=== PATIENT | female | born 1955 | race Caucasian/White ===

== ENCOUNTER 2020-11-04 09:51 | Outpatient (CLI) | payer MEDICARE, SELFPAY ==
--- NOTE | ~2020-11-04 | MM_ITS ---
EXAMINATION: MM screening [facility] BI w khadra HISTORY: Screening TECHNIQUE: Craniocaudal and mediolateral oblique 3-D tomosynthesis images were obtained and synthetic 2-D images were generated. CAD analysis was submitted and interpreted. COMPARISON: Comparison to multiple prior studies sequentially, with oldest reviewed study dated 04/08. BREAST PARENCHYMAL COMPOSITION: There are scattered areas of fibroglandular density. FINDINGS: There is no evidence of suspicious mass, calcification, or architectural distortion to sugg est malignancy in either breast. There has been no suspicious interval change. IMPRESSION: 1. No mammographic evidence of malignancy. 2. Recommend routine screening mammography in one year. BI-RADS Category 1: Negative Reviewed, dictated and finalized at location A. OR INTEGRATION ARCHITECT
== END 2020-11-04 09:52 | disposition home or self-care (01) ==
LOC: ANHIMG 09:56
PROVIDERS: PCP Family Medicine; Visit Provider Obstetrics & Gynecology
DX: Z12.31 Encounter for screening mammogram for malignant neoplasm of breast (principal)
CPT/HCPCS: 77063; 77067

== ENCOUNTER 2021-05-29 10:26 | Emergency (ER) | payer MEDICARE, SELFPAY ==
--- NOTE | 2021-05-29 10:45 | ED.URI ---
HPI - URI/Sore Throat General Chief Complaint: Upper Respiratory Infection Stated Complaint: cough/head congestion Time Seen by Provider: 05/29/21 10:45 Source: patient and RN notes reviewed Mode of arrival: ambulatory Limitations: no limitations History of Present Illness HPI Narrative: 65-year-old female presents with complaints of a cough,, frontal headache, sinus congestion, states she is having trouble breathing out her nose. Has been using a Kathryn pot and Mucinex DM. States that she has had her Covid vaccine in January. Has been going on for approximately 1 week. Denies any fevers. MD elicited complaint: cough Related Data Home Medications Medication Instructions Recorded Confirmed biotin 5,000 mcg PO DAILY 10/08/19 05/29/21 ocenvmunm-xdpmrmcp-zeh-hyalur 1 tablet PO DAILY 10/08/19 05/29/21 [Joint Health] kbcmwlrt-qby-anqj-FA-lutein 1 tablet PO DAILY 10/08/19 05/29/21 [Centrum Silver Women] ascorbate calcium (vitamin C) 814 814 mg PO DAILY 04/01/20 05/29/21 mg/gram oral powder calcium carbonate-vitamin D3 600 1 cap PO DAILY cap 02/11/21 05/29/21 mg (1,500 mg)-400 unit capsule zinc acetate 50 mg (zinc) capsule 50 mg PO DAILY 02/11/21 05/29/21 Allergies Allergy/AdvReac Type Severity Reaction Status Date / Time No Known Allergies Allergy Verified 05/29/21 11:00 Review of Systems Review of Systems: All systems reviewed & are unremarkable except as noted in HPI and below Constitutional: Constitutional: Reports no additional constitutional complaints, Denies chills and Denies fever(s) Eyes: Eyes: Reports no additional eye complaints, Denies change in vision and Denies photophobia ENT: Reports as per HPI, Denies vertigo, Denies dizziness, Reports nasal congestion and Denies sore throat Cardiovascular: Cardiovascular: Reports no additional cardiovascular complaints and Denies chest pain Respiratory: Respiratory: Reports as per HPI, Reports cough, Denies dyspnea and Denies wheezing Gastrointestinal: Gastrointestinal: Reports no additional gastrointestinal complaints, Denies abdominal pain, Denies nausea and Denies vomiting Genitourinary: Genitourinary: Reports no additional female genitourinary complaints Musculoskeletal: Musculoskeletal: Reports no additional musculoskeletal complaints, Denies back pain, Denies arthralgias, Denies joint swelling and Denies muscle cramps Integumentary/Breasts: Skin/Breast: Reports system reviewed and no additional complaints, except as docu Neurologic: Reports as per HPI and Reports headache(s) (Frontal and maxillary areas of face) Psychiatric: Psychiatric: Reports no additional psychiatric complaints Hematologic/Lymphatic: Hematologic/Lymphatic: Reports no additional hematologic/lymphatic complaints Allergic/Immunologic: Allergic/Immunologic: Reports no additional allergic/immunologic complaints [facility] Past Medical History Medical History Arthritis Chronic low back pain without sciatica Colon polyp Diverticulosis Dyslipidemia GERD (gastroesophageal reflux disease) GERD without esophagitis Hyperlipidemia Polyp of small intestine Premature menopause Unspecified osteoarthritis, unspecified site Surgical History Surgical History Hx of section 1981, 1983 Hx of colonoscopy 2019 Family History Family History Other Diabetes mellitus Family history of coronary artery disease Social History Social History Smoking status: Never smoker Second hand tobacco smoke exposure: No Alcohol intake: current Substance use: never Substance use type: does not use Comments At the time of my signature, I reviewed and agree with the nursing past medical, surgical, social, and family history. There is no relevant family history pertinent to the patien
[2021-05-29 10:49] VITALS: BP 135/55; PULSE 80; RESP 12; TEMP 36.7; O2SAT 99
== END 2021-05-29 11:15 | disposition home or self-care (01) ==
PROVIDERS: Emergency Provider Nurse Practitioner; PCP Family Medicine
DX: J06.9 Acute upper respiratory infection, unspecified (principal); J40 Bronchitis, not specified as acute or chronic; J01.90 Acute sinusitis, unspecified; E78.5 Hyperlipidemia, unspecified; K21.9 Gastro-esophageal reflux disease without esophagitis; M19.90 Unspecified osteoarthritis, unspecified site
CPT/HCPCS: 99213; G0463

== ENCOUNTER → 2021-06-02 09:38 | Outpatient (CLI) | payer MEDICARE, SELFPAY ==
--- NOTE | ~2021-06-02 | XR_ITS ---
EXAMINATION: XR chest 2V EXAM DATE: 06/02/2021 10:15 INDICATION: R06.02 - Shortness of breath . Bronchitis diagnosed product. Sternal chest burning sensat ion. TECHNIQUE: Frontal and lateral projections of the chest obtained and reviewed. Comparison is made to prior examination from 06/10/2015. FINDINGS: The lungs are clear. There are no pleural effusions. The cardiomediastinal silhouette is within normal limits. There is no pneumothorax suspected. The bones and soft tissues are unremarkab le. IMPRESSION: No acute cardiopulmonary findings. Reviewed, dictated and finalized at location B.
== END ==
PROVIDERS: PCP Family Medicine; Visit Provider Nurse Practitioner Family
DX: R06.02 Shortness of breath (principal)
CPT/HCPCS: 71046

== ENCOUNTER 2021-10-14 10:00 | Outpatient (CLI) | payer MEDICARE, SELFPAY ==
--- NOTE | ~2021-10-14 | DEXA_ITS ---
Bone Density Report Name: Michelle Mccormick Age: 66 Sex: Female Ethnicity: White Date of : 1955 Indication: postmenopausal; height loss; Referring Provider: Rancho Gonzales Study: Bone densitometry was performed. Exam Date: October 14, 2021 Accession number: [id number] Bone Density: Region BMD T-score Z-score Classification AP Spine (L1-L4) 1.347 2.7 4.6 Normal Femoral Neck (Left) 0.766 -0.7 0.8 Normal Total Hip (Left) 0.944 0.0 1.3 Normal Total Hip Bilateral Avg 0.970 0.2 1.5 Normal Femoral Neck (Right) 0.729 -1.1 0.5 Osteopenia Total Hip (Right) 0.995 0.4 1.7 Normal World Health Organization criteria for BMD impression classify patients as: Normal (T-score at or above -1.0), Osteopenia (T-score between -1.0 and -2.5), or Osteoporosis (T-score at or below -2.5). 10-year Fracture Risk(1): Major Osteoporotic Fracture 7.9% Hip Fracture 0.6% Reported Risk Factors: [place] (), Neck BMD=0.729, BMI=33.8 (1) FRAX(R) Version 3.08. Fracture probability calculated for an untreated patient. Fracture probability may be lower if the patient has received treatment. Clinical Information Provided by Patient: Has used the following medications: Calcium Patient maximum height was 67 Menopause Age: 36 Onset of menses at age 13 Number of children 2 Impression: The patient has low bone mass, based on the Right Femoral Neck T-score. The patient has an estimated ten-year risk of hip fracture of 0.6% and an estimated ten-year risk of major fracture of 7.9%, based on the WHO FRAX algorithm. Discussion: BONE DENSITY IS LOW AT ONE OR MORE SKELETAL SITES. This patient's lowest T-score is low at one or more skeletal sites. It meets the World Health Organization's (WHO) criteria for ?low bone mass? (T-score between -1.0 and -2.5). The patient's 10-year risk of fracture as calculated by FRAX is less than the threshold where pharmacological therapy is recommended by the National Osteoporosis Foundation (NOF). However, all treatment decisions require clinical judgment and consideration of individual patient factors, including patient preferences, comorbidities, previous drug use, risk factors not captured in the FRAX model (e.g., frailty, falls, vitamin D deficiency, increased bone turnover, interval significant decline in bone density) and possible under or overestimation of fracture risk by FRAX. The patient should follow a healthful lifestyle (good nutrition with adequate calcium and vitamin D, and appropriate weight-bearing exercise). Follow-Up: Consider repeating this study in 2 to 3 years to reassess this patient's status, or sooner if there is some new clinical indication. Reported by: [facility] on 10/14/2021 10:24:00 AM. Reviewed, dictated and finalize
== END 2021-10-14 10:01 | disposition home or self-care (01) ==
LOC: ANHIMG 10:03
PROVIDERS: PCP Family Medicine; Visit Provider Family Medicine
DX: Z78.0 Asymptomatic menopausal state (principal); M85.851 Other specified disorders of bone density and structure, right thigh
CPT/HCPCS: 77080

== ENCOUNTER 2022-01-12 15:15 | Outpatient (CLI) | payer MEDICARE, SELFPAY ==
--- NOTE | ~2022-01-12 | MM_ITS ---
EXAMINATION: MM screening [facility] BI w khadra HISTORY: Screening TECHNIQUE: Craniocaudal and mediolateral oblique 3-D tomosynthesis images were obtained and synthetic 2-D images were generated. CAD analysis was submitted and interpreted. COMPARISON: Comparison to multiple prior studies sequentially, with oldest reviewed study dated 04/15. BREAST PARENCHYMAL COMPOSITION: There are scattered areas of fibroglandular density. FINDINGS: There is no evidence of suspicious mass, calcification, or architectural distortion to sugg est malignancy in either breast. There has been no suspicious interval change. IMPRESSION: 1. No mammographic evidence of malignancy. 2. Recommend routine screening mammography in one year. BI-RADS Category 1: Negative Reviewed, dictated and finalized at location A. X RAY PHYSICIAN
== END 2022-01-12 15:16 | disposition home or self-care (01) ==
LOC: ANHIMG 15:16
PROVIDERS: PCP Family Medicine; Visit Provider Obstetrics & Gynecology
DX: Z12.31 Encounter for screening mammogram for malignant neoplasm of breast (principal)
CPT/HCPCS: 77063; 77067

== ENCOUNTER 2022-05-01 13:35 | Emergency (ER) | payer MEDICARE, SELFPAY ==
[2022-05-01 13:42] VITALS: BP 118/67; PULSE 80; RESP 16; TEMP 36.3; O2SAT 99
--- NOTE | 2022-05-01 15:08 | ED.GENADULT ---
HPI - General Adult General Chief complaint: Skin/Abscess/Foreign Body Stated complaint: TICK BITE Source: patient Mode of arrival: ambulatory Limitations: no limitations History of Present Illness HPI narrative: Patient presents for evaluation of a tick bite to the left flank. She believes the bite occurred 2 days ago. She started developing some itching and irritation in the affected area yesterday. She was unable to remove the tick so came in here for further evaluation. No fever, chills, nausea, vomiting, drainage from the affected area. She is not diabetic. No additional complaints or concerns Related Data Home Medications Medication Instructions Recorded Confirmed calcium carbonate 600 mg-vitamin 1 cap PO DAILY 02/11/21 05/01/22 D3 10 mcg (400 unit) capsule coenzyme Q10 200 mg/gram oral 200 mg PO DAILY 08/19/21 05/01/22 powder (H2Q CoQ10) oxybutynin chloride 10 mg 10 mg PO DAILY 02/23/22 05/01/22 tablet,extended release 24 hr Allergies Allergy/AdvReac Type Severity Reaction Status Date / Time No Known Allergies Allergy Verified 05/01/22 13:39 Review of Systems Review of Systems: CONSTITUTIONAL: Denies fever, chills, or sweats. EYES: Denies visual changes, redness, or discharge. ENT: Denies rhinorrhea, congestion, sore throat, or otalgia. CARDIOVASCULAR: Denies chest pain, palpitations, or edema. RESPIRATORY: Denies cough or dyspnea. GASTROINTESTINAL: Denies abdominal pain, nausea, vomiting, or diarrhea. GENITOURINARY: Denies dysuria or hematuria. SKIN: Reports tick bite to the left flank MUSCULOSKELETAL: Denies back pain, joint pain, or myalgia. NEUROLOGIC: Denies headache, numbness, dizziness, or weakness. PSYCHIATRIC: Denies anxiety or depression. [facility] Past Medical History Medical History Arthritis Chronic low back pain without sciatica Colon polyp Diverticulosis Dyslipidemia GERD (gastroesophageal reflux disease) GERD without esophagitis Osteopenia Polyp of small intestine Premature menopause Unspecified osteoarthritis, unspecified site Surgical History Surgical History Hx of section 1981, 1983 Hx of colonoscopy 2019 Family History Family History Other Diabetes mellitus Family history of coronary artery disease Social History Social History Second hand tobacco smoke exposure: No Alcohol intake: current Alcohol use details: 1 glass of beer or wine consumed occasionally Substance use: never Substance use type: does not use Exam Narrative: GENERAL: Well-appearing, well-nourished, and in no acute distress. HEAD: Normocephalic, atraumatic. EYES: PERRLA and EOMI. ENT: Nares clear, no rhinorrhea or epistaxis. Mucous membranes moist. Oropharynx without tonsillar hypertrophy exudate or other lesions. Bilateral TMs pearly bailey nonbulging NECK: Supple. No adenopathy or masses. No carotid bruits or JVD CHEST: Clear to auscultation. No respiratory distress. No wheezes rales or rhonchi HEART: Regular rate and rhythm. No murmur heard. Normal peripheral pulses. ABDOMEN: Soft, nontender, nondistended, normal active bowel sounds. EXTREMITIES: Normal range of motion. No edema. SKIN: There is an approximately 1 mm dark lesion raised from the surface of the skin to the left flank which could be consistent with tick based on patient's reported history or a scabbed lesion. NEURO: No focal deficits. Alert and oriented x3. PSYCH: Normal mood and affect. Course Course Emergency Course: This is a 66-year-old female that presented with reports of a tick bite to the left flank. On my physical exam it was unclear whether this was a tick or a scabbed lesion. I removed the dark lesion from the left flank and patient tolerated well.
== END 2022-05-01 14:21 | disposition home or self-care (01) ==
PROVIDERS: Emergency Provider Nurse Practitioner; PCP Family Medicine
DX: S30.860A Insect bite (nonvenomous) of lower back and pelvis, initial encounter (principal); W57.XXXA Bitten or stung by nonvenomous insect and other nonvenomous arthropods, initial encounter; M19.90 Unspecified osteoarthritis, unspecified site; K21.9 Gastro-esophageal reflux disease without esophagitis; E78.5 Hyperlipidemia, unspecified
CPT/HCPCS: 99213; G0463

== ENCOUNTER 2023-02-24 09:51 | Outpatient (CLI) | payer MEDICARE, SELFPAY ==
[2023-02-24 18:41] LABS: Alanine Aminotransferase 16 U/L (6-35); Albumin Level 4.2 g/dL (3.5-5.1); Alkaline Phosphatase 76 U/L (38-126); Anion Gap 5 mmol/L (8-16); Aspartate Amino Transferase 18 U/L (14-36); Bilirubin,Total 0.5 mg/dL (0.2-1.3); Blood Urea Nitrogen 17 mg/dL (7-17); Calcium 8.9 mg/dL (8.4-10.2); Carbon Dioxide 30 mmol/L (22-30); Chloride 105 mmol/L (98-107); Estimated Glomerular Filt Rate > 60; Glucose 87 mg/dL (65-110); Potassium 3.9 mmol/L (3.4-5.0); Sodium 140 mmol/L (137-145)
== END 2023-02-24 09:52 | disposition home or self-care (01) ==
LOC: ANHGOSHLAB 09:52
PROVIDERS: PCP Family Medicine; Visit Provider Family Medicine
DX: E78.5 Hyperlipidemia, unspecified (principal); Z79.899 Other long term (current) drug therapy
CPT/HCPCS: 36415; 80053

== ENCOUNTER 2023-04-20 09:03 | Outpatient (CLI) | payer MEDICARE, SELFPAY ==
--- NOTE | ~2023-04-20 | MM_ITS ---
EXAMINATION: MM screening [facility] BI w khadra HISTORY: Screening mammogram TECHNIQUE: Craniocaudal and mediolateral oblique 3-D tomosynthesis images were obtained and synthetic 2-D images were generated. CAD analysis was submitted and interpreted. COMPARISON: 01/12/2022, 11/04/2020, 09/13/2019 BREAST PARENCHYMAL COMPOSITION: There are scattered areas of fibroglandular density. FINDINGS: No suspicious mass, calcification, or architectural distortion are identified in either emerson ast to suggest malignancy. There has been no suspicious interval change. IMPRESSION: 1. No mammographic evidence of malignancy. 2. Recommend routine screening mammography in one year. BI-RADS Category 1: Negative Reviewed, dictated and finalized at location A.
== END 2023-04-20 09:04 | disposition home or self-care (01) ==
LOC: ANHIMG 09:04
PROVIDERS: PCP Family Medicine; Visit Provider Obstetrics & Gynecology
DX: Z12.31 Encounter for screening mammogram for malignant neoplasm of breast (principal)
CPT/HCPCS: 77063; 77067

== ENCOUNTER 2024-03-09 10:19 | Outpatient (CLI) | payer MEDICARE, SELFPAY ==
--- NOTE | ~2024-03-09 | DEXA_ITS ---
Bone Density Report Name: TRE RONDON Age: 68 Sex: Female Ethnicity: White Date of : 1955 Indication: postmenopausal; screening for osteoporosis; height loss; Referring Provider: RAFAEL LUCERO Study: Bone densitometry was performed. Exam Date: March 09, 2024 Accession number: [id number] Bone Density: Region BMD T-score Z-score Classification AP Spine(L1-L4) 1.352 2.8 4.8 Normal Femoral Neck (Left) 0.726 -1.1 0.6 Osteopenia Total Hip (Left) 0.903 -0.3 1.1 Normal Femoral Neck (Right) 0.728 -1.1 0.6 Osteopenia Total Hip (Right) 0.942 0.0 1.4 Normal Total Hip Mean 0.922 -0.2 1.3 Normal World Health Organization criteria for BMD impression classify patients as: Normal (T-score at or above -1.0), Osteopenia (T-score between -1.0 and -2.5), or Osteoporosis (T-score at or below -2.5). 10-year Fracture Risk(1): Major Osteoporotic Fracture 4.6% Hip Fracture 0.4% Reported Risk Factors: [place] (), Neck BMD=0.726, BMI=33.8 (1) FRAX(R) Version 3.08. Fracture probability calculated for an untreated patient. Fracture probability may be lower if the patient has received treatment. Clinical Information Provided by Patient: Has used the following medications: Vitamin D, Calcium Patient maximum height was 67 Menopause Age: 36 Does not regularly consume dairy products Drinks caffeinated beverages Onset of menses at age 10 Number of children 2 Impression: The patient has low bone mass, based on the Left Femoral Neck T-score. The patient has an estimated ten-year risk of hip fracture of 0.4% and an estimated ten-year risk of major fracture of 4.6%, based on the WHO FRAX algorithm. Discussion: BONE DENSITY IS LOW AT ONE OR MORE SKELETAL SITES. This patient's lowest T-score is low at one or more skeletal sites. It meets the World Health Organization's (WHO) criteria for ?low bone mass? (T-score between -1.0 and -2.5). The patient's 10-year risk of fracture as calculated by FRAX is less than the threshold where pharmacological therapy is recommended by the National Osteoporosis Foundation (NOF). However, all treatment decisions require clinical judgment and consideration of individual patient factors, including patient preferences, comorbidities, previous drug use, risk factors not captured in the FRAX model (e.g., frailty, falls, vitamin D deficiency, increased bone turnover, interval significant decline in bone density) and possible under or overestimation of fracture risk by FRAX. The patient should follow a healthful lifestyle (good nutrition with adequate calcium and vitamin D, and appropriate weight-bearing exercise). Follow-Up: Consider repeating this study in 2 to 3 years to reassess this patient's status, or sooner if there is some new clinical indication.
== END 2024-03-09 10:20 | disposition home or self-care (01) ==
PROVIDERS: PCP Family Medicine; Visit Provider Family Medicine
DX: Z78.0 Asymptomatic menopausal state (principal); M85.852 Other specified disorders of bone density and structure, left thigh; M85.851 Other specified disorders of bone density and structure, right thigh
CPT/HCPCS: 77080

== ENCOUNTER 2024-05-29 08:30 | Outpatient (CLI) | payer MEDICARE, SELFPAY ==
--- NOTE | ~2024-05-29 | MM_ITS ---
EXAMINATION: MM screening [facility] BI w khadra HISTORY: Screening mammogram TECHNIQUE: Craniocaudal and mediolateral oblique 3-D tomosynthesis images were obtained and synthetic 2-D images were generated. CAD analysis was submitted and interpreted. COMPARISON: 04/20/2023, 01/12/2022, 11/04/2020 BREAST PARENCHYMAL COMPOSITION:Not Dense. There are scattered areas of fibroglandular density. FINDINGS: No suspicious mass, calcification, or architectural distortion are identified in either emerson ast to suggest malignancy. There has been no suspicious interval change. IMPRESSION: No mammographic evidence of malignancy. Recommend routine screening mammography in one year. BI-RADS Category 1: Negative Reviewed, dictated and finalized at location .
== END 2024-05-29 08:31 | disposition home or self-care (01) ==
LOC: ANHIMG 08:31
PROVIDERS: PCP Family Medicine; Visit Provider Obstetrics & Gynecology
DX: Z12.31 Encounter for screening mammogram for malignant neoplasm of breast (principal)
CPT/HCPCS: 77063; 77067

== ENCOUNTER 2024-11-07 01:27 | Day surgery (SDC) | payer MEDICARE, SELFPAY ==
[2024-10-18 15:50] VITALS: BMI 32.3
[2024-11-07 08:31] VITALS: BP 125/70; PULSE 64; RESP 20; TEMP 36.4; O2SAT 97
[2024-11-07] MEDS: LACTATED RINGERS 1,000 ML 150 ML IV CONT (08:43)
--- NOTE | 2024-11-07 09:45 | WPDANESEPPF ---
Anes - Initial Pre Proc Eval Procedure: Operation Date: 11/07/24 09:30 Proposed Procedures p Colonoscopy - Jack Ang MD Date/Time: 11/07/24 09:45 Surgeon: Jack Ang MD Pre Op Diagnosis: Pers. Hx. colon Polyps Patient Data Age: 69 Gender: F Height: 1.68 m Weight: 90.9 kg Last Vital Signs Temp 36.4 C L 11/07/24 08:31 Pulse 64 11/07/24 08:31 Resp 20 11/07/24 08:31 BP 125/70 11/07/24 08:31 Pulse Ox 97 11/07/24 08:31 O2 Del Method Room Air 11/07/24 08:31 Allergies Allergy/AdvReac Type Severity Reaction Status Date / Time No Known Allergies Allergy Verified 11/07/24 08:29 Home Medications ?Medication ?Instructions ?Recorded ?Confirmed ?Type acetaminophen 325 mg tablet 325 mg PO Q6H PRN Pain 08/25/22 10/18/24 History (Tylenol) diclofenac sodium 1 % topical gel 4 g topical QID PRN Pain 02/24/23 10/18/24 History (Voltaren Arthritis Pain) cyanocobalamin (vitamin B-12) 1,000 mcg sublingual DAILY #90 tabs 04/22/23 11/07/24 Rx 1,000 mcg sublingual tablet calcium carbonate 1,200 mg PO DAILY 08/25/23 11/07/24 History rosuvastatin 10 mg tablet 10 mg PO QHS #90 tabs 07/23/24 11/07/24 Rx meloxicam 15 mg tablet 15 mg PO DAILY #90 tabs 07/26/24 11/07/24 Rx omeprazole 40 mg capsule,delayed 40 mg PO DAILY #90 caps 08/20/24 11/07/24 Rx release Bovey 3 /D3 2,400 mg PO DAILY 10/18/24 11/07/24 History coQ10 (ubiquinol) 100 mg capsule 100 mg PO DAILY 10/18/24 11/07/24 History Patient hx anesthesia problems: none Family hx anesthesia problems: none Results Review: All pre-operative results and documents have been reviewed as part of the pre-operative evaluation. [facility] Past Medical History Medical History Gluten intolerance Acquired deviated nasal septum History of COVID-19 (~07/2023) Vitamin B12 deficiency Lactose intolerance Chronic toe pain, right foot Urge incontinence Osteopenia Polyp of small intestine Diverticulosis Premature menopause Dyslipidemia Chronic low back pain without sciatica Unspecified osteoarthritis, unspecified site Colon polyp GERD (gastroesophageal reflux disease) Surgical History Surgical History History of total right knee replacement (~11/2022) History of foot surgery Right - x 2 - 2006 and 2013 Hx of section 1981, 1983 Hx of colonoscopy 2019 Family History Family History Other Diabetes mellitus Family history of coronary artery disease Social History Social History Social History: Caffeine- coffee Smoking status: Never smoker Second hand tobacco smoke exposure: No Alcohol intake: current Alcohol use details: 1 glass of beer or wine consumed occasionally Substance use: never Substance use type: does not use Lack of Transportation: No Lack of Food: Never True Current Housing: I Have Housing Concerned About Future Housing: No Difficulty Paying Gas/Electric Bills: No Difficulty Paying for Meds: No Currently Unemployed: No Education: Bachelor's Degree Difficulty w/ Childcare or Family Care: No Living arrangements: with family Occupation/Education: retired Gender identity (if verbalized by the patient): Female Agree to blood products: Yes Anes - Eval Final PreProcedure Day of Procedure 11/07/24 09:45 Patient weight: obese Heart: regular rate and rhythm Lungs: clear to auscultation Airway: Mallampati scale class II Neurological: alert and oriented Last oral intake: >/= 8 hours ASA classification: III Emergent: no Anesthetic plan: proceed Anesthesia type and monitoring: general GIVS and standard monitoring Results Review: All pre-operative results and documents have been reviewed as part of the pre-operative evaluation. Informed Consent: The patient's anesthetic plan and its attendant risks and benefits were discussed with the patient/family/POA. Questions were solicited and answers provided to the satisfaction of the patient/family/POA.
--- NOTE | 2024-11-07 09:53 | PM.IMHP ---
H&P: HPI History of Present Illness Date/Time: 11/07/24 09:53 Chief Complaint: History of colon polyps Narrative: The patient has a history of colonic polyps, the last colonoscopy was 5 years ago. Review of Systems Review of Systems: All systems reviewed & are unremarkable except as noted in HPI and below PMFSH Past Medical History Medical History Gluten intolerance Acquired deviated nasal septum History of COVID-19 (~07/2023) Vitamin B12 deficiency Lactose intolerance Chronic toe pain, right foot Urge incontinence Osteopenia Polyp of small intestine Diverticulosis Premature menopause Dyslipidemia Chronic low back pain without sciatica Unspecified osteoarthritis, unspecified site Colon polyp GERD (gastroesophageal reflux disease) Surgical History Surgical History History of total right knee replacement (~11/2022) History of foot surgery Right - x 2 - 2006 and 2013 Hx of section 1981, 1983 Hx of colonoscopy 2019 Family History Family History Other Diabetes mellitus Family history of coronary artery disease Social History Social History Social History: Caffeine- coffee Smoking status: Never smoker Second hand tobacco smoke exposure: No Alcohol intake: current Alcohol use details: 1 glass of beer or wine consumed occasionally Substance use: never Substance use type: does not use Lack of Transportation: No Lack of Food: Never True Current Housing: I Have Housing Concerned About Future Housing: No Difficulty Paying Gas/Electric Bills: No Difficulty Paying for Meds: No Currently Unemployed: No Education: Bachelor's Degree Difficulty w/ Childcare or Family Care: No Living arrangements: with family Occupation/Education: retired Gender identity (if verbalized by the patient): Female Agree to blood products: Yes Meds Home Medications and Allergies Home Medications ?Medication ?Instructions ?Recorded ?Confirmed ?Type acetaminophen 325 mg tablet 325 mg PO Q6H PRN Pain 08/25/22 10/18/24 History (Tylenol) diclofenac sodium 1 % topical gel 4 g topical QID PRN Pain 02/24/23 10/18/24 History (Voltaren Arthritis Pain) cyanocobalamin (vitamin B-12) 1,000 mcg sublingual DAILY #90 tabs 04/22/23 11/07/24 Rx 1,000 mcg sublingual tablet calcium carbonate 1,200 mg PO DAILY 08/25/23 11/07/24 History rosuvastatin 10 mg tablet 10 mg PO QHS #90 tabs 07/23/24 11/07/24 Rx meloxicam 15 mg tablet 15 mg PO DAILY #90 tabs 07/26/24 11/07/24 Rx omeprazole 40 mg capsule,delayed 40 mg PO DAILY #90 caps 08/20/24 11/07/24 Rx release Barron 3 /D3 2,400 mg PO DAILY 10/18/24 11/07/24 History coQ10 (ubiquinol) 100 mg capsule 100 mg PO DAILY 10/18/24 11/07/24 History Allergies Allergy/AdvReac Type Severity Reaction Status Date / Time No Known Allergies Allergy Verified 11/07/24 08:29 Vital Signs Vital Signs - 24 hr 11/07/24 08:31 Temperature 97.5 F L Pulse Rate 64 Respiratory Rate 20 Blood Pressure 125/70 Pulse Oximetry 97 Oxygen Delivery Room Air Exam Const: General: cooperative and healthy appearing Resp: Effort & Inspection: normal respiratory effort and able to speak in complete sentences Auscultation: clear to auscultation bilaterally Cardio: Rate: regular rate Rhythm: regular rhythm GI: Inspection: normal to inspection GI Palp: No No hepatosplenomegaly present Auscultation: normal bowel sounds Rectal Exam: deferred Skin: General skin exam: normal color Psych: Appearance: grossly normal Mental Status: mental status grossly normal Assessment and Plan Assessment and plan (1) History of colonic polyps: Code(s): Z86.0100 - Personal history of colon polyps, unspecified Status: Acute Assessment and Plan: The patient is deemed a good candidate for the procedure. Consent signed. Will proceed.
[2024-11-07 10:22] VITALS: BP 110/65; PULSE 57; RESP 18; O2SAT 99
[2024-11-07 10:32] VITALS: BP 107/70; PULSE 61; RESP 18; O2SAT 99
[2024-11-07 10:42] VITALS: BP 125/67; PULSE 60; RESP 16; O2SAT 99
== END 2024-11-07 10:56 | disposition home or self-care (01) ==
PROVIDERS: PCP Family Medicine; Visit Provider Internal Medicine Gastroenterology
PROC: 0DJD8ZZ Inspection of Lower Intestinal Tract, Via Natural or Artificial Opening Endoscopic (ICD-10-PCS; CPT 45378; principal; 2024-11-07 09:30)
DX: Z12.11 Encounter for screening for malignant neoplasm of colon (principal); D12.3 Benign neoplasm of transverse colon; K57.30 Diverticulosis of large intestine without perforation or abscess without bleeding; K64.1 Second degree hemorrhoids
CPT/HCPCS: 45385; 88305; J2704; J7120

== ENCOUNTER 2025-02-18 09:13 | Outpatient (CLI) | payer MEDICARE, SELFPAY ==
--- OUTSIDE RECORDS SUMMARY | 2025-02-18 10:07 | XMS_ITS | Referral Summary ---
Author Organization [facility] Address [address] [place] [address] Care Team Providers Care Autos Disassembler Name Role Phone Suzanna Gonzales MD Primary Care Provider Desmond Moser MD Unavailable [phone] Encounters Date Type Department Care Team Description 01/10/2025 11:05 AM PETAL CUTTER - 01/10/2025 11:59 PM PETAL CUTTER Hospital Encounter [facility] [address] [place] [address] [address] [place] [phone] Discharge Disposition: Discharge to home or self care 01/10/2025 7:42 AM PETAL CUTTER - 01/10/2025 11:59 PM PETAL CUTTER Hospital Encounter [facility] Medical [facility] Orthopedics and Sports Medicine [address] [place] [address] [address] [place] [id number] Discharge Disposition: Discharge to home or self care 01/10/2025 11:00 AM PETAL CUTTER Office Visit [facility] [address] [place] [address] [address] [place] [address] Desmond Moser MD Trochanteric bursitis, right hip (Primary Dx); Right hip pain; Primary osteoarthritis of right hip; Right knee pain, unspecified chronicity; Aftercare following right knee joint replacement surgery from Last 3 Months Allergies No known active allergies Medications famotidine (PEPCID) 40 mg tablet Take 1 tablet (40 mg total) by mouth 2 (two) times a day 11/17/20 21 Active oxybutynin XL (DITROPAN-XL) 10 mg 24 hr tablet Take 1 tablet (10 mg total) by mouth daily 12/04/19 22 Active rosuvastatin (CRESTOR) 10 mg tablet Take 1 tablet (10 mg total) by mouth daily 10/19/20 21 Active cyanocobalamin (Vitamin B-12) 1,000 mcg sublingual tablet Take 1 tablet (1,000 mcg total) by mouth daily Active ferrous sulfate 325 mg (65 mg of elemental iron) tabletIndications: Iron Deficiency Anemia Take 1 tablet (325 mg total) by mouth daily with breakfast Active calcium carbonate (CALCIUM 600 ORAL) Take 1,200 mg by mouth daily Active ascorbic acid 500 mg tablet,chewable Take 1 tablet/chew tab (500 mg total) by mouth daily 30 tablet/chew tab 12/15/19 23 Active aspirin (Ecotrin) 325 mg enteric coated tablet Take 1 tablet (325 mg total) by mouth daily 42 tablet 12/15/19 23 Active ondansetron ODT (ZOFRAN-ODT) 4 mg disintegrating tablet Take 1 tablet (4 mg total) by mouth every 8 (eight) hours as needed for nausea or vomiting 20 tablet 1 12/15/19 23 Active Additional Information Patient not taking.Reported on 01/10/2025 senna-docusate (PERICOLACE) 8.6-50 mg Take 2 tablets by mouth daily 60 tablet 2 12/15/19 23 Active Additional Information Patient not taking.Reported on 12/30/2022 scopolamine 1 mg over 3 days patch [address] 1 patch on the skin every third day 4 patch 12/17/19 23 Active oxyCODONE-acetamin ophen (PERCOCET) 5-325 mg per tabletIndications: S/P TKR (total knee replacement) using cement, right Take 1-2 tablets by mouth every 4 (four) hours as needed for pain 40 tablet 12/17/19 23 Active Additional Information Patient not taking.Reported on 01/10/2025 celecoxib (CeleBREX) 100 mg capsule TAKE 1 CAPSULE BY MOUTH TWICE A DAY 60 capsule 02/29/20 23 Active celecoxib (CeleBREX) 200 mg capsule TAKE 1 CAPSULE BY MOUTH TWICE A DAY 84 capsule 04/27/20 23 Active meloxicam (MOBIC) 15 mg tablet Take 1 tablet (15 mg total) by mouth daily 11/30/19 24 Active amoxicillin 500 mg tablet/capsule TAKE 4 CAPSULES BY MOUTH 1 HOUR BEFORE PROCEDURE 4 tablet/capsu le 2 09/10/20 24 Active Active Problems Problem Noted Date Diagnosed Date Primary osteoarthritis of right knee 12/02/2022 Overview (12/02/2022): Added automatically from request for surgery [id number] Primary osteoarthritis of knees, bilateral 12/24 Social History Tobacco Use Types Packs/Day Years Used Date Smoking Tobacco: Never Smokeless Tobacco: Never Tobacco Cessation:Counseling Given: Not Answered AUDIT-C Answer Date Recorded Q1: How often do you have a drink containing alc ohol? 2-4 times a month 12/07/2022 Q2: How many drinks containi ng alcohol do you have on a typical day when you are drinking? 1 or 2 12/07/2022 Frequency of Binge Drinking Not on file 11/28 Personal Safety Answer Date Recorded Getting School Help Needed Denies 11/17 Comments Unknown Sex and Gender Information Value Date Recorded Sex Assigned at Not on file Legal Sex Female 6:06 PM PETAL CUTTER Gender Identity Not on file Sexual Orientation Not on file Last Filed Vital Signs Vital Sign Reading Time Taken Comments Blood Pressure 144/90 01/10/2024 11:15 AM PETAL CUTTER Pulse 86 01/10/2024 11:15 AM PETAL CUTTER Temperature 36.5 C (97.7 F) 12/15/2022 3:46 PM PETAL CUTTER Respiratory Rate 18 12/15/2022 3:46 PM PETAL CUTTER Oxygen Saturation 95% 12/15/2022 3:46 PM PETAL CUTTER Inhaled Oxygen Concentration - - Weight 92.1 kg (203 lb) 01/10/2025 10:43 AM PETAL CUTTER Height 165.1 cm (5' 5 ) 01/10/2025 10:43 AM PETAL CUTTER Body Mass Index 33.78 01/10/2025 10:43 AM PETAL CUTTER Plan of Treatment Not on file Medical Devices Implanted Type Area High Pressure Kettle Operator Device Identifier Shelf Expiration Date Model / Serial / Lot [employer] Cement Bone Simplex Gentamicin High Viscosity 40 6195-1-001 - [id number] Implanted:Qty: 1 on 12/15/2022 by Desmond Moser MD at [facility] Right: Knee [employer] 06/27/2024 6195-1-001 / / [id number] [employer] Cement Bone Simplex Gentamicin High Viscosity 40gm 6195-1-001 - [id number] Implanted:Qty: 1 on 12/15/2022 by Desmond Moser MD at [facility] Right: Knee [employer] 06/27/2024 6195-1-001 / / [id number] [employer] Attune S+ Cement Fix Bearing Knee 5 Baseplate Tibial [id number] - [id number] Implanted:Qty: 1 on 12/15/2022 by Desmond Moser MD at [facility] Right: Knee [employer] 08/27/2032 [id number] / / [id number] [employer] Attune Cemented Posterior Stabilize Knee Right 6 Component [id number] - [id number] Implanted:Qty: 1 on 12/15/2022 by Desmond Moser MD at [facility] Right: Knee [employer] 08/27/2032 [id number] / / [id number] [employer] Attune 6mm Posterior Stabilize Fix Bearing Knee 6 Insert Tibial [id number] - [id number] Implanted:Qty: 1 on 12/15/2022 by Desmond Moser MD at [facility] Right: Knee [employer] 09/27/2027 [id number] / / [id number] Procedures Procedure Name Priority Date/Time Associated Diagnosis Comments XR KNEE RIGHT 3 VIEWS Schedule Routine, Read Routine (OP Routine) 01/10/2025 11:07 AM PETAL CUTTER Right knee pain, unspecified chronicity XR HIP RIGHT 2 OR 3 VIEWS Schedule Routine, Read Routine (OP Routine) 01/10/2025 11:01 AM PETAL CUTTER Right hip pain ND ARTHROCENTESIS ASPIR&/INJ MAJOR JT/BURSA W/O US Routine 01/10/2025 11:00 AM PETAL CUTTER Trochanteric bursitis, right hip from Last 3 Months Results * XR Knee Right 3 Views (01/10/2025 11:07 AM PETAL CUTTER) Anatomical Region Laterality Modality Lower Extremities, Knee Right Digital Radiography Narrative 01/10/2025 12:04 PM PETAL CUTTER Right total knee replacement in appropriate position with no interval change. Desmond Moser MD IMG XR PROCEDURES Final Result * XR Hip Right 2 or 3 Views (01/10/2025 11:01 AM PETAL CUTTER) Anatomical Region Laterality Modality Lower Extremities, Hip, Pelvis Right D igital Radiography Narrative 01/10/2025 12:04 PM PETAL CUTTER Signs of chronic bursitis bilaterally with retained joint space and mild arthritic change Desmond Moser MD IMG XR PROCEDURES Final Result * ND ARTHROCENTESIS ASPIR&/INJ MAJOR JT/BURSA W/O US (01/10/2025 11:00 AM PETAL CUTTER) Narrative Desmond Moser MD - 01/10/2025 11:00 AM PETAL CUTTER Desmond Moser MD 01/10/2025 12:07 PM Greater trochanteric bursa injection Performed by: Desmond Moser MD Authorized by: Desmond Moser MD Greater Trochanteric Bursa Injection: Consent Given by: Patient Site marked: the procedure site was marked Timeout: prior to procedure the correct patient, procedure, and site was verified Verbal consent obtained?: Yes Prior to the start of the procedure, verbal verification by the procedure participant(s) confirmed (as applicable): corect patient idenity; correct site/side marked and visible; agreement on the procedure to be done; correct patient positioning; an accurate procedure consent form, relevant images and results correctly labeled and displayed; any safety precautions based on clinical history and/or medication use have been addressed.: Supporting Documentation: Indications: Pain and therapeutic Procedure Details: Site: Right Greater Trochanteric Bursa Prep: patient was prepped and draped in usual sterile fashion Patient position: Sidelying Needle Size: 22 G Ultrasound guidance: No Approach: Lateral Medications: 80 mg methylPREDNISolone acetate 80 mg/mL; 4 mL lidocaine 20 mg/mL (2 %) Patient tolerance: Patient tolerated the procedure well with no immediate complications Desmond Moser MD IN CLINIC/BEDSIDE ORDERA BLES Final Result from Last 3 Months Insurance [employer] [facility] [employer] [facility] [employer] Advance Directives For more information, please contact: [phone] Documents on File Type Date Recorded Patient Pier Runner Expl anation Power of Log Marker 12/15/2022 6:08 AM * Full Code (Latest Code Status on File) Date Activated Date Inactivated Comments 12/15/2022 10:46 AM 12/15/2022 7:53 PM Care Teams Autos Disassembler Relationship Specialty Start Date End Date Suzanna Gonzales MD PCP - General Family Practice 12/24/21 Desmond Moser MD [address] [place] [address] DR BRANNON [address] [place], [place] [address] [address] Surgeon Orthopedic Surgery 12/15/22
--- OUTSIDE RECORDS SUMMARY | 2025-02-18 10:07 | XMS_ITS | Encounter Summary ---
Author Organization [facility] Address [address] [place] [address] Care Team Providers Care Creche Attendant Name Role Phone Fredy Bowen MD Primary Care Provider [phone] Encounter Details Date Type Department Care Team (Late st Contact Info) Description 10/09/2007 Outpatient Historical [facility] Armin Betancur MD [address] [place] [address] Other Screening Mammogram (Primary Dx) Social History Tobacco Use Types Packs/Day Years Used Date Smoking Tobacco: Never Assessed Comments Unknown Sex and Gender Information Value Date Recorded Sex Assigned at Not on file Legal Sex Female 5:07 AM PALLIATIVE CARE NURSE Gender Identity Not on file Sexual Orientation Not on file documented as of this encounter Plan of Treatment Not on file documented as of this encounter Visit Diagnoses Diagnosis Other screening mammogram- Primary documented in this encounter Care Teams Creche Attendant Relationship Specialty Start Date End Date Fredy Bowen MD [address] [place] [address] PCP - General 04/28/01 documented as of this encounter
--- OUTSIDE RECORDS SUMMARY | 2025-02-18 10:07 | XMS_ITS | Clinical Summary ---
Author Organization [facility] Address [address] [place] [address] Care Team Providers Care Cover Remover Name Role Phone Fredy Bowen MD Primary Care Provider [phone] Source Comments [facility],non-owned Affiliates and Associated Physician Practices is amultiple site organization consisting of ambulatory clinics and hospital sitesin [place], [place], [place] and [place]. This disclosure is being madepursuant to the Care Everywhere program and may not contain all information available regarding this patient. Last updated 18.[facility] Allergies No known active allergies Medications * Be aware that medications may not be up to date on this document. Alwaysverify current medications with the patient. Medication Sig Dispensed Refills Start Date End Date Status famotidine (PEPCID) 40 MG tablet Take 1 tablet by mouth once daily 04/12/2018 Active meloxicam (MOBIC) 15 MG tablet Take 1 tablet by mouth once daily 04/05/2018 Active amoxicillin (AMOXIL) 875 MG tablet Take 1 tablet by mouth 2 times daily 20 tablet 06/10/2018 Active Additional Information Patient not taking.Reported on 06/27/2019 atorvastatin (LIPITOR) 10 MG tablet 05/03/2019 Active Multiple Vitamins-Minerals (MULTIVITAMIN ADULT PO) Active Active Problems No known active problems Family History Medical History Relation Name Comments CAD (Coronary Artery Disease) Father Relation Name Status Comments Father Mother Social History Tobacco Use Types Packs/Day Years Used Date Smoking Tobacco: Never Smokeless Tobacco: Never Alcohol Use Standard Drinks/Week Comments Yes 0 (1 standard drink = 0.6 oz pur e alcohol) occasionally Sex and Gender Information Value Date Recorded Sex Assigned at Not on file Gender Identity Not on file Sexual Orientation Not on file Last Filed Vital Signs Vital Sign Reading Time Taken Comments Blood Pressure 140/70 06/27/2019 9:49 AM CDT Pulse 86 06/27/2019 9:49 AM CDT Temperature 36.3 C (97.3 F) 06/27/2019 9:49 AM CDT Respiratory Rate 16 06/27/2019 9:49 AM CDT Oxygen Saturation 95% 06/27/2019 9:49 AM CDT Inhaled Oxygen Concentration - - Weight 96.9 kg (213 lb 9.6 oz) 06/27/2019 9:49 A M CDT Height 166.4 cm (5' 5.5 ) 06/27/2019 9:49 AM CDT Body Mass Index 35 06/27/2019 9:49 AM CDT Plan of Treatment Health Maintenance Due Date Last Done Comments BONE DENSITY TESTING 1955 COLOGUARD (AGES 45-75) - COL ON CA SCREENING 1955 COLON MONITORING 1955 COLONOSCOPY - COLON CA SCREENING 1955 CT COLONOGRAPHY - COLON CA SCREENING 1955 Colorectal Cancer Screening 1955 FIT - COLON CA SCREENING 1955 FLEX SIG - COLON CA SCREENING 1955 MAMMOGRAM 1955 HEPATITIS C SCREENING 08/05/1973 DTAP/TDAP/TD VACCINES (1 - Tdap) 1974 PNEUMOCOCCAL VACCINE 50+ (1 of 1 - PCV) 2005 ZOSTER VACCINE (1 of 2) 2005 SCREENING FOR DIABETES 06/27/2019 COVID-19 VACCINE ( - 2023-2 5 season) 2024 INFLUENZA VACCINE (#1) 2024 DEPRESSION SCREENING 11/28/2024 MEDICARE AWV CALENDAR YEAR 2024 Respiratory Syncytial Virus (RSV) Vaccine Pt: or over 60 yrs (1 - 1-dose 75+ series) 2030 HEPATITIS B VACCINE Aged Out No longe r eligible based on patient's age to complete this topic HIB VACCINE Aged Out No longer eligi ble based on patient's age to complete this topic HPV VACCINE Aged Out No longer eligi ble based on patient's age to complete this topic MENINGOCOCCAL (Group B) VACC INE SHARED DECISION-MAKING Aged Out No longer eligibl e based on patient's age to complete this topic MENINGOCOCCAL GROUPS A/C/Y/W VACCINE Aged Out No longer eligible b ased on patient's age to complete this topic Care Teams Cover Remover Relationship Specialty Start Date End Date Fredy Bowen MD [address] [place] [address] PCP - General 11/16/19
--- OUTSIDE RECORDS SUMMARY | 2025-02-18 10:07 | XMS_ITS | Encounter Summary ---
Author Organization [facility] Address [address] [place] [address] Care Team Providers Care Bariatric Coordinator Name Role Phone Fredy Boewn MD Primary Care Provider [phone] Encounter Details Date Type Department Care Team (Late st Contact Info) Description 04/28/2001 Outpatient Historical [facility] Armin Betancur MD [address] [place] [address] [place] [address] Special screening for malignant neoplasms, colon (Primary Dx) Social History Tobacco Use Types Packs/Day Years Used Date Smoking Tobacco: Never Assessed Comments Unknown Sex and Gender Information Value Date Recorded Sex Assigned at Not on file Legal Sex Female 5:07 AM SHEAR OPERATOR Gender Identity Not on file Sexual Orientation Not on file documented as of this encounter Plan of Treatment Not on file documented as of this encounter Visit Diagnoses Diagnosis Special screening for malignant neoplasms, colon- Primary documented in this encounter Care Teams Bariatric Coordinator Relationship Specialty Start Date End Date Fredy Bowen MD [address] [place] [address] PCP - General 04/28/01 documented as of this encounter
--- OUTSIDE RECORDS SUMMARY | 2025-02-18 10:07 | XMS_ITS | Clinical Summary ---
Author Organization [facility] Address [address] [place] [address] Care Team Providers Care Rand Tacker Name Role Phone Suzanna Gonzales MD Primary Care Provider Desmond Moser MD Unavailable [phone] Allergies No known active allergies Medications famotidine [...] (12/02/2022): Added automatically from request for surgery [id number] Primary osteoarthritis of knees, bilateral 12/24 Encounters Date Type Department Care Team Description 01/10/2025 11:05 AM WALLPAPERER - 01/10/2025 11:59 PM WALLPAPERER Hospital Encounter [facility]ics and Sports Medicine [address] [place] [phone] Discharge Disposition: Discharge to home or self care 01/10/2025 11:00 AM WALLPAPERER Office Visit [facility] Orthopedics and Sports Medicine [address] [place] [phone] Desmond Moser MD Trochanteric bursitis, right hip (Primary Dx); Right hip pain; Primary osteoarthritis of right hip; Right knee pain, unspecified chronicity; Aftercare following right knee joint replacement surgery 01/10/2025 7:42 AM WALLPAPERER - 01/10/2025 11:59 PM WALLPAPERER Hospital Encounter [facility] Orthopedics and Sports Medicine [address] [place] [address] Discharge Disposition: Discharge to home or self care from Last 3 Months Surgical History Surgery Date Site/Laterality Comments FOOT SURGERY Right SECTION x 2 Medical History Medical History Date Comments Hypercholesteremia Osteoarthritis GERD (gastroesophageal reflux disease) Family History Medical History Relation Name Comments Alcohol abuse Other Gout Other Heart disease Other Stroke Other Relation Name Status Comments Other Social History Tobacco Use Types Packs/Day Years [...] on file Legal Sex Female 6:06 PM WALLPAPERER Gender Identity Not on file Sexual Orientation Not on file Obstetrics History Last Filed Vital Signs Vital Sign Reading Time Taken Comments Blood Pressure 144/90 01/10/2024 11:15 AM WALLPAPERER Pulse 86 01/10/2024 11:15 AM WALLPAPERER Temperature 36.5 C (97.7 F) 12/15/2022 3:46 PM WALLPAPERER Respiratory Rate 18 12/15/2022 3:46 PM WALLPAPERER Oxygen Saturation 95% 12/15/2022 3:46 PM WALLPAPERER Inhaled Oxygen Concentration - - Weight 92.1 kg (203 lb) 01/10/2025 10:43 AM WALLPAPERER Height 165.1 cm (5' 5 ) 01/10/2025 10:43 AM WALLPAPERER Body Mass Index 33.78 01/10/2025 10:43 AM WALLPAPERER Plan of Treatment Health Maintenance Due Date Last Done Comments Breast Cancer Screening-Mammogram 1955 Colon Cancer Screening-Colonoscopy 1955 Depression Screening 1955 Fall Risk Assessment 1955 Hepatitis C Screening 1955 Osteoporosis Screening-Bone Density Scan 1955 Hepatitis B Screening 1973 Zoster Vaccine (2 of 3) 06/14/2019 04/19/2019, 09/28 Well Visit 65+ 2020 Covid-19 Vaccine (4 - season) 2024 09/01/2021, 02/13/2021, 01/22/2021 Influenza Vaccine (#1) 2024 , 08/05/2020, 10/27/2018 DTaP/Tdap/Td Vaccine (2 - Td or Tdap) 07/01/202702/2017 Pneumococcal vaccine 65+ Completed 09/01/2021, 07/29 Medical Devices Implanted Type Area Court Recording Monitor Device Identifier Shelf Expiration Date Model / Serial / Lot [employer] Cement Bone Simplex Gentamicin High Viscosity 40gm 6195-1-001 - [id number] Implanted:Qty: 1 on 12/15/2022 by Desmond Moser MD at [facility] Right: Knee [employer] 06/27/2024 6195-1-001 / / [id number] [employer] Cement Bone Simplex Gentamicin High Viscosity 40gm 6195-1-001 - [id number] Implanted:Qty: 1 on 12/15/2022 by Desmond Moser MD at [facility] Right: Knee [employer] 06/27/2024 6195-1-001 / / [id number] [employer] Attune S+ Cement Fix Bearing Knee 5 Baseplate Tibial [id number] - [id number] Implanted:Qty: 1 on 12/15/2022 by Desmond Moser MD at [facility] Right: Knee [employer] 08/27/2032 [id number] / / [id number] [employer] Attune Cemented Posterior Stabilize Knee Right 6 Component [id number] - [id number] Implanted:Qty: 1 on 12/15/2022 by Desmond Moser MD at [facility] Right: Knee [employer] 08/27/2032 [id number] / / [id number] [employer] Attune 6mm Posterior Stabilize Fix Bearing Knee 6 Insert Tibial [id number] - [id number] Implanted:Qty: 1 on 12/15/2022 by Desmond Moser MD at [facility] Right: Knee [employer] 09/27/2027 [id number] / / [id number] Procedures Procedure Name Priority Date/Time Associated Diagnosis Comments XR KNEE RIGHT 3 VIEWS Schedule Routine, Read Routine (OP Routine) 01/10/2025 11:07 AM WALLPAPERER Right knee pain, unspecified chronicity XR HIP RIGHT 2 OR 3 VIEWS Schedule Routine, Read Routine (OP Routine) 01/10/2025 11:01 AM WALLPAPERER Right hip pain [place] ARTHROCENTESIS ASPIR&/INJ MAJOR JT/BURSA W/O US Routine 01/10/2025 11:00 AM WALLPAPERER Trochanteric bursitis, right hip from Last 3 Months Results * XR Knee Right 3 Views (01/10/2025 11:07 AM WALLPAPERER) Anatomical Region Laterality Modality Lower Extremities, Knee Right Digital Radiography Narrative 01/10/2025 12:04 PM WALLPAPERER Right total knee replacement in appropriate position with no interval change. us Desmond Moser MD IMG XR PROCEDURES Final Result * XR Hip Right 2 or 3 Views (01/10/2025 11:01 AM WALLPAPERER) Anatomical Region Laterality Modality Lower Extremities, Hip, Pelvis Right D igital Radiography Narrative 01/10/2025 12:04 PM WALLPAPERER Signs of chronic bursitis bilaterally with retained joint space and mild arthritic change us Desmond Moser MD IMG XR PROCEDURES Final Result * [place] ARTHROCENTESIS ASPIR&/INJ MAJOR JT/BURSA W/O US (01/10/2025 11:00 AM WALLPAPERER) Narrative Desmond Moser MD - 01/10/2025 11:00 AM WALLPAPERER Desmond Moser MD 01/10/2025 12:07 PM Greater [...] Final Result from Last 3 Months Insurance [facility] AETNA [facility] ADVANTRA Advance Directives For more information, please contact: [phone] Documents on File Type Date Recorded Patient Armored Service Technician Expl anation Power of Granite Worker 12/15/2022 6:08 AM * Full Code (Latest Code Status on File) Date Activated Date Inactivated Comments 12/15/2022 10:46 AM 12/15/2022 7:53 PM Care Teams Rand Tacker Relationship Specialty Start Date End Date Suzanna Gonzales MD PCP - General Family Practice 12/24/21 Desmond Moser MD [address] [place] [address] [place] [address] Surgeon Orthopedic Surgery 12/15/22
--- OUTSIDE RECORDS SUMMARY | 2025-02-18 10:07 | XMS_ITS | Clinical Summary ---
Author Organization [facility] Address [address] [place] [phone] Phone Care Team Providers Care Playground Official Name Role Phone Fredy Bowen MD Primary Care Provider [phone] Social History Tobacco Use Types Packs/Day Years Used Date Smoking Tobacco: Never Assessed Comments Unknown Sex and Gender Information Value Date Recorded Sex Assigned at Not on file Legal Sex Female 5:07 AM NEUROSURGERY SPINE PHYSICIAN Gender Identity Not on file Sexual Orientation Not on file Plan of Treatment Health Maintenance Due Date Last Done Comments DTAP/TDAP/TD VACCINES (1 - Tdap) 1974 BREAST CANCER SCREENING 1995 COLORECTAL SCREENING 2000 Colorectal Cancer Screening 2000 FIT-DNA Q 3 years 2000 FIT/FOBT Q 1 year 2000 Flex Sig/CT Colonography Q 5 years 2000 PNEUMOCOCCAL VACCINE 50+ YEARS (1 of 1 - PCV) 08/10/20 05 ZOSTER VACCINE (1 of 2) 2005 OSTEOPOROSIS SCREENING 2020 INFLUENZA VACCINE (#1) 2024 RSV VACCINE (60+ or ) (1 - 1-dose 75+ series) 2030 Care Teams Playground Official Relationship Specialty Start Date End Date Fredy Bowen MD [address] [place] [phone] PCP - General 04/28/01
[2025-02-18 15:38] LABS: Alanine Aminotransferase 19 U/L (6-35); Albumin Level 4.3 g/dL (3.5-5.1); Alkaline Phosphatase 73 U/L (38-126); Anion Gap 8 mmol/L (4-12); Aspartate Amino Transferase 25 U/L (14-36); Bilirubin,Total 0.5 mg/dL (0.2-1.3); Blood Urea Nitrogen 23 mg/dL (7-17); Carbon Dioxide 27 mmol/L (22-30); Chloride 105 mmol/L (98-107); Estimated Glomerular Filt Rate > 60; Glucose 70 mg/dL (65-110); Potassium 3.8 mmol/L (3.4-5.0); Sodium 140 mmol/L (137-145)
== END 2025-02-18 09:14 | disposition home or self-care (01) ==
LOC: ANHGOSHLAB 09:13
PROVIDERS: PCP Family Medicine; Visit Provider Family Medicine
DX: E78.5 Hyperlipidemia, unspecified (principal); Z79.899 Other long term (current) drug therapy
CPT/HCPCS: 36415; 80053

== ENCOUNTER 2025-02-18 09:23 | Outpatient (CLI) | payer MEDICARE, SELFPAY ==
--- NOTE | ~2025-02-18 | XR_ITS ---
XR chest 2V Ordering provider: Rancho Gonzales MD History: 69 years Female with . R05.8 - Other specified cough . Comparison: None. FINDINGS: MEDIASTINUM: The cardiac silhouette is not enlarged. LUNGS: No infiltrates, effusions or pneumothorax. OTHER: No free air under the diaphragm. Degenerative changes of the spine. IMPRESSION: No acute cardiopulmonary pathology. Reviewed, dictated and finalized at location A.
== END 2025-02-18 09:24 | disposition home or self-care (01) ==
LOC: GOSHIMG 09:24
PROVIDERS: PCP Family Medicine; Visit Provider Family Medicine
DX: R05.8 Other specified cough (principal)
CPT/HCPCS: 71046

== ENCOUNTER 2025-06-22 11:19 | Outpatient (CLI) | payer MEDICARE, SELFPAY ==
--- NOTE | ~2025-06-22 | MM_ITS ---
EXAMINATION: MM screening latosha BI w khadra HISTORY: Screening TECHNIQUE: Craniocaudal and mediolateral oblique 3-D tomosynthesis images were obtained and synthetic 2-D images were generated. CAD analysis was submitted and interpreted. COMPARISON: Comparison to multiple prior studies sequentially, with oldest reviewed study dated 08/09. BREAST PARENCHYMAL COMPOSITION: Not dense: There are scattered areas of fibroglandular density. FINDINGS: There is no evidence of suspicious mass, calcification, or architectural distortion to sugg est malignancy in either breast. There has been no suspicious interval change. IMPRESSION: 1. No mammographic evidence of malignancy. 2. Recommend routine screening mammography in one year. BI-RADS Category 1: Negative Reviewed, dictated and finalized at location A.
--- OUTSIDE RECORDS SUMMARY | 2025-06-22 11:21 | XMS_ITS | Encounter Summary ---
Author Organization [facility] Address [address] [place] [address] Care Team Providers Care Financial Systems Manager Name Role Phone Fredy Bowen MD Primary Care Provider [phone] Encounter Details Date Type Department Care Team (Late st Contact Info) Description 10/09/2007 Outpatient Historical [facility] Armin Betancur MD [address] [place] [address] Other Screening Mammogram (Primary Dx) Social History Tobacco Use Types Packs/Day Years Used Date Smoking Tobacco: Never Assessed Comments Unknown Sex and Gender Information Value Date Recorded Sex Assigned at Not on file Legal Sex Female 5:07 AM ELECTRICAL ENGINEERING INTERN Gender Identity Not on file Sexual Orientation Not on file documented as of this encounter Plan of Treatment Not on file documented as of this encounter Visit Diagnoses Diagnosis Other screening mammogram- Primary documented in this encounter Care Teams Financial Systems Manager Relationship Specialty Start Date End Date Fredy Bowen MD [address] [place] [phone] PCP - General 04/28/01 documented as of this encounter
--- OUTSIDE RECORDS SUMMARY | 2025-06-22 11:21 | XMS_ITS | Clinical Summary ---
Author Organization [facility] Address [address] [place] [address] Care Team Providers Care Mortgage Processor Name Role Phone Fredy Bowen MD Primary Care Provider [phone] [facility],non-owned Affiliates and Associated Physician Practices is amultiple site organization consisting of ambulatory clinics and hospital sitesin [place], [place], [place] and [place]. This disclosure is being madepursuant to the Care Everywhere program and may not contain all information available regarding this patient. Last updated 18.[facility] Allergies No known active allergies Medications * Be aware that medications may not be up to date on this document. Alwaysverify current medications with the patient. famotidine (PEPCID) 40 MG tablet Take 1 tablet by mouth once daily 8 Active meloxicam (MOBIC) 15 MG tablet Take 1 tablet by mouth once daily 8 Active amoxicillin (AMOXIL) 875 MG tablet Take 1 tablet by mouth 2 times daily 20 tablet 8 Active Additional Information Patient not taking.Reported on 06/27/2019 atorvastatin (LIPITOR) 10 MG tablet 9 Active Multiple Vitamins-Minera ls (MULTIVITAMIN ADULT PO) Active Active Problems No known active problems Family History Medical History Relation Name Comments CAD (Coronary Artery Disease) Father Relation Name Status Comments Father Mother Social History Tobacco Use Types Packs/Day Years Used Date Smoking Tobacco: Never Smokeless Tobacco: Never Alcohol Use Standard Drinks/Week Comments Yes 0 (1 standard drink = 0.6 oz pur e alcohol) occasionally Comments No Sex and Gender Information Value Date Recorded Sex Assigned at Not on file Legal Sex Female 9:34 AM CDT Gender Identity Not on file Sexual Orientation [...] A M CDT Height 166.4 cm (5' 5.5) 06/27/2019 9:49 AM CDT Body Mass Index [...] 2005 SCREENING FOR DIABETES 06/27/2019 COVID-19 VACCINE (1 - 2023-2 5 season) 2024 DEPRESSION SCREENING 11/28/2024 MEDICARE AWV CALENDAR YEAR 2024 INFLUENZA VACCINE (#1) 2025 Respiratory Syncytial Virus (RSV) Vaccine Pt: or [...] on patient's age to complete [place] [address] [facility] AETNA MEDICARE ADV SELF PAY NO INSURANCE Member Subscriber Plan / Payer (Ef fective for All Dates) Name:Tre Mccormick Sindy Member ID:Not on file Relation to Subscriber:Not on file Name:TRE MCCORMICK Subscriber ID:Not on file (Home) Address: [address] [place] [address] Payer ID:Not on file Group ID:Not on file Type:Self Pay Address: [place], [place] Care Teams Mortgage Processor Relationship Specialty Start Date End Date Fredy Bowen MD [address] [place] [address] PCP - General 11/16/19
--- OUTSIDE RECORDS SUMMARY | 2025-06-22 11:22 | XMS_ITS | Clinical Summary ---
Author Organization [facility] Address [address] [place] [phone] Phone Care Team Providers Care Dry Cleaner Helper Name Role Phone Fredy Bowen MD Primary Care Provider [phone] Social History Tobacco Use Types Packs/Day Years Used Date Smoking Tobacco: Never Assessed Comments Unknown Sex and Gender Information Value Date Recorded Sex Assigned at Not on file Legal Sex Female 5:07 AM MICA MINER Gender Identity Not on file Sexual Orientation [...] 2005 OSTEOPOROSIS SCREENING 2020 INFLUENZA VACCINE (#1) 2025 RSV VACCINE (60+ or ) (1 - 1-dose 75+ series) 2030 Care Teams Dry Cleaner Helper Relationship Specialty Start Date End Date Fredy Bowen MD [address] [place] [phone] PCP - General 04/28/01
--- OUTSIDE RECORDS SUMMARY | 2025-06-22 11:22 | XMS_ITS | Patient Health Record ---
Author Organization [facility] Address [address] [facility]. [address] [place] [phone] Care Team Providers Care Aircraft Communicator Name Role Phone Fredy Bowen MD Primary Care Provider Unavaila ble Reason For Referral No Information Plan Of Treatment No Information Insurance Providers Payer Name Payer Address Payer Phone Subscriber Number Group Number Insured Name Patient Relationship to Insured Coverage Start Date Coverage End Date [facility] Choice Plus E2 [address] [address] [place] [address] [id number] Michelle Mccormick Self - patient is the insured
--- OUTSIDE RECORDS SUMMARY | 2025-06-22 11:22 | XMS_ITS | Clinical Summary ---
Author Organization [facility] Address [address] [place] [address] Care Team Providers Care Shop Mechanic Helper Name Role Phone Suzanna Gonzales MD Primary Care Provider Desmond Moser MD Unavailable Allergies No known active allergies Medications famotidine [...] mg total) by mouth daily 42 tablet 01/18/20 23 Active ondansetron ODT (ZOFRAN-ODT) 4 mg disintegrating tablet Take 1 tablet (4 mg total) by mouth every 8 (eight) hours as needed for nausea or vomiting 20 tablet 1 12/15/19 Active Additional Information Patient not taking.Reported on 06/14/2025 senna-docusate (PERICOLACE) 8.6-50 mg Take 2 tablets by mouth daily 60 tablet 2 12/15/19 Active Additional Information Patient not taking.Reported on 06/14/2025 scopolamine 1 mg over 3 days patch [address] 1 patch on the skin every third day 4 patch 12/17/19 Active oxyCODONE-acetamin ophen (PERCOCET) 5-325 mg per tabletIndications: S/P TKR (total knee replacement) using cement, right Take 1-2 tablets by mouth every 4 (four) hours as needed for pain 40 tablet 12/17/19 Active Additional Information Patient not taking.Reported on 06/14/2025 celecoxib (CeleBREX) 100 mg capsule TAKE 1 [...] 4 tablet/capsu le 2 09/10/20 24 Active Hospital, Clinic, or Other Facility Administered Medication Ordered Dose Route Frequency Start Date End Date Status lidocaine (XYLOCAINE) 20 mg/mL (2 %) injection 4 mLIndications:Admi nistration of Local Anesthesia 4 mL OTHER One-Time Injection 06/14/2025 06/14/2025 Ended methylPREDNISolone acetate (DEPO-medrol) injection 80 mgIndications:Troc hanteric bursitis, right hip 80 mg intra-artic One-Time Injection 06/14/2025 06/14/2025 Ended Active Problems Problem Noted Date Diagnosed Date Primary osteoarthritis of right knee 12/02/2022 Overview (12/02/2022): Added automatically from request for surgery [id number] Primary osteoarthritis of knees, bilateral 12/24 Encounters Date Type Department Care Team Description 06/14/2025 10:45 AM CDT Office Visit [facility] Group Orthopedics and Sports Medicine [address] [facility] [address] [place] [phone] Desmond Moser MD Trochanteric bursitis, right hip (Primary Dx) from Last 3 Months Surgical History Surgery [...] on file Legal Sex Female 6:06 PM UTILIZATION REVIEW RN Gender Identity Not on file Sexual Orientation Not on file Obstetrics History Last Filed Vital Signs Vital Sign Reading Time Taken Comments Blood Pressure 144/90 01/10/2024 11:15 AM UTILIZATION REVIEW RN Pulse 86 01/10/2024 11:15 AM UTILIZATION REVIEW RN Temperature 36.5 C (97.7 F) 12/15/2022 3:46 PM UTILIZATION REVIEW RN Respiratory Rate 18 12/15/2022 3:46 PM UTILIZATION REVIEW RN Oxygen Saturation 95% 12/15/2022 3:46 PM UTILIZATION REVIEW RN Inhaled Oxygen Concentration - - Weight 92.1 kg (203 lb) 06/14/2025 10:35 AM CDT Height 165.1 cm (5' 5) 06/14/2025 10:35 AM CDT Body Mass Index 33.78 06/14/2025 10:35 AM CDT Plan of Treatment Health Maintenance [...] 2024 09/01/2021, 02/13/2021, 01/22/2021 Influenza Vaccine (#1) 2025 , 08/05/2020, 10/27/2018 DTaP/Tdap/Td Vaccine (2 - Td or Tdap) 07/01/202702/2017 Pneumococcal vaccine 65+ Completed 09/01/2021, 07/29 Medical Devices Implanted Type Area Party Plan Sales Director Device Identifier Shelf Expiration Date Model / Serial / Lot [employer] Cement Bone Simplex Gentamicin High Viscosity 40gm 6195-1-001 - [id number] Implanted:Qty: 1 on 12/15/2022 by Desmond Moser MD at [facility] Right: Knee [employer] 06/27/2024 6195-1-001 / / [id number] [employer] Cement Bone Simplex Gentamicin High Viscosity 40gm 6195-1-001 - [id number] Implanted:Qty: 1 on 12/15/2022 by Desmond Moser MD at [facility] Right: Knee [employer] 06/27/2024 6195-1-001 / / [id number] [employer] Attune S+ Cement Fix Bearing Knee 5 Baseplate Tibial [id number] - [id number] Implanted:Qty: 1 on 12/15/2022 by Desmond Moser MD at [facility] Right: Knee [employer] 08/27/2032 [id number] / / [id number] [employer] Attune Cemented Posterior Stabilize Knee Right 6 Component [id number] - [id number] Implanted:Qty: 1 on 12/15/2022 by Desmond Moser MD at [facility] Right: Knee [employer] 08/27/2032 [id number] / / [id number] [employer] Attune 6mm Posterior Stabilize Fix Bearing Knee 6 Insert Tibial [id number] - [id number] Implanted:Qty: 1 on 12/15/2022 by Desmond Moser MD at [facility] Right: Knee [employer] 09/27/2027 [id number] / / [id number] Procedures Procedure Name Priority Date/Time Associated Diagnosis Comments [place] ARTHROCENTESIS ASPIR&/INJ MAJOR JT/BURSA W/O US Routine 06/14/2025 10:45 AM CDT Trochanteric bursitis, right hip from Last 3 Months Results * [place] ARTHROCENTESIS ASPIR&/INJ MAJOR JT/BURSA W/O US (06/14/2025 10:45 AM CDT) Narrative Desmond Moser MD - 06/14/2025 10:45 AM CDT Desmond Moser MD 06/14/2025 12:19 PM Greater trochanteric bursa injection Performed by: [...] Final Result from Last 3 Months Insurance AETNA [facility] ADVANTRA AETNA [facility] ADVANTRA Advance Directives For more information, please contact: [phone] Documents on File Type Date Recorded Patient Hose Mender Expl anation Power of Switchboard Troubleshooter 12/15/2022 6:08 AM * Full Code (Latest Code Status on File) Date Activated Date Inactivated Comments 12/15/2022 10:46 AM 12/15/2022 7:53 PM Care Teams Shop Mechanic Helper Relationship Specialty Start Date End Date Suzanna Gonzales MD PCP - General Family Practice 12/24/21 Desmond Moser MD [address] [place] [address] SRIDEVI GARRISON [address] Surgeon Orthopedic Surgery 12/15/22
--- OUTSIDE RECORDS SUMMARY | 2025-06-22 11:22 | XMS_ITS | Encounter Summary ---
Author Organization [facility] Address 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
--- OUTSIDE RECORDS SUMMARY | 2025-06-22 11:22 | XMS_ITS | Referral Summary ---
Author Organization [facility] Medical Office Building B Address [address] [place] [address] Care Team Providers Care Banking Services Officer Name Role Phone Suzanna Gonzales MD Primary Care Provider Desmond Moser MD Unavailable Encounters Date Type Department Care Team Description 06/14/2025 10:45 AM CDT Office Visit [facility] Orthopedics and Sports Medicine [address] [place] [address] Desmond Moser MD Trochanteric bursitis, right hip (Primary Dx) from Last 3 Months Allergies No known [...] (12/02/2022): Added automatically from request for surgery [id number] Primary osteoarthritis of knees, bilateral 12/24 Social [...] on file Legal Sex Female 6:06 PM BACKSHOE PERSON Gender Identity Not on file Sexual Orientation Not on file Last Filed Vital Signs Vital Sign Reading Time Taken Comments Blood Pressure 144/90 01/10/2024 11:15 AM BACKSHOE PERSON Pulse 86 01/10/2024 11:15 AM BACKSHOE PERSON Temperature 36.5 C (97.7 F) 12/15/2022 3:46 PM BACKSHOE PERSON Respiratory Rate 18 12/15/2022 3:46 PM BACKSHOE PERSON Oxygen Saturation 95% 12/15/2022 3:46 PM BACKSHOE PERSON Inhaled Oxygen Concentration - - Weight 92.1 kg (203 lb) 06/14/2025 10:35 AM CDT Height 165.1 cm (5' 5) 06/14/2025 10:35 AM CDT Body Mass Index 33.78 06/14/2025 10:35 AM CDT Plan of Treatment Not on file Medical Devices Implanted Type Area Deicer Tester Device Identifier Shelf Expiration Date Model / Serial / Lot [employer] Cement Bone Simplex Gentamicin High Viscosity 40gm 6195-1-001 - [id number] Implanted:Qty: 1 on 12/15/2022 by Desmond Moser MD at [facility] Right: Knee [employer] 06/27/2024 6195-1-001 / / [id number] [employer] Cement Bone Simplex Gentamicin High Viscosity 40gm 6195-1-001 - [id number] Implanted:Qty: 1 on 12/15/2022 by Desmond Moser MD at [facility] Right: Knee [employer] 06/27/2024 6195-1-001 / / [id number] [employer] Attune S+ Cement Fix Bearing Knee 5 Baseplate Tibial [id number] - [id number] Implanted:Qty: 1 on 12/15/2022 by Desmond Moser MD at [facility] Right: Knee [employer] 08/27/2032 [id number] / / [id number] [employer] Attune Cemented Posterior Stabilize Knee Right 6 Component [id number] - [id number] Implanted:Qty: 1 on 12/15/2022 by Desmond Moser MD at [facility] Right: Knee [employer] 08/27/2032 [id number] / / [id number] [employer] Attune 6mm Posterior Stabilize Fix Bearing Knee 6 Insert Tibial [id number] - [id number] Implanted:Qty: 1 on 12/15/2022 by Desmond Moser MD at [facility] Right: Knee [employer] 09/27/2027 [id number] / / [id number] Procedures Procedure Name Priority Date/Time Associated Diagnosis Comments ME ARTHROCENTESIS ASPIR&/INJ MAJOR JT/BURSA W/O US Routine 06/14/2025 10:45 AM CDT Trochanteric bursitis, right hip from Last 3 Months Results * ME ARTHROCENTESIS ASPIR&/INJ MAJOR JT/BURSA W/O US (06/14/2025 [...] the procedure well with no immediate complications us Desmond Moser MD IN CLINIC/BEDSIDE ORDERA BLES Final Result from Last 3 Months Insurance [facility] [employer] [facility] [employer] Advance Directives For more information, please contact: [phone] Documents on File Type Date Recorded Patient Engineering Lecturer Expl anation Power of Multineedle Shirrer 12/15/2022 6:08 AM * Full Code (Latest Code Status on File) Date Activated Date Inactivated Comments 12/15/2022 10:46 AM 12/15/2022 7:53 PM Care Teams Banking Services Officer Relationship Specialty Start Date End Date Suzanna Gonzales MD PCP - General Family Practice 12/24/21 Desmond Moser MD [address] [place] [address] Surgeon Orthopedic Surgery 12/15/22
== END 2025-06-22 11:20 | disposition home or self-care (01) ==
LOC: ANHIMG 11:20
PROVIDERS: PCP Family Medicine; Visit Provider Obstetrics & Gynecology
DX: Z12.31 Encounter for screening mammogram for malignant neoplasm of breast (principal)
CPT/HCPCS: 77063; 77067

== ENCOUNTER 2025-09-03 09:53 | Outpatient (CLI) | payer MEDICARE, SELFPAY ==
--- OUTSIDE RECORDS SUMMARY | 2025-09-03 10:38 | XMS_ITS | Clinical Summary ---
Author Organization [facility] Address 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
--- OUTSIDE RECORDS SUMMARY | 2025-09-03 10:38 | XMS_ITS | Encounter Summary ---
Author Organization [facility] Address [address] [place] [address] Care Team Providers Care Farmer Cash Grain Name Role Phone Fredy Bowen MD Primary Care Provider [phone] Encounter Details Date Type Department Care Team (Late st Contact Info) Description 04/28/2001 Outpatient Historical [facility] Armin Betancur MD [address] [place] [place] [address] [place] [address] Special screening for malignant neoplasms, colon (Primary Dx) Social History Tobacco Use Types Packs/Day Years Used Date Smoking Tobacco: Never Assessed Comments Unknown Sex and Gender Information Value Date Recorded Sex Assigned at Not on file 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
--- OUTSIDE RECORDS SUMMARY | 2025-09-03 10:38 | XMS_ITS | Clinical Summary ---
Author Organization [facility] Medical Office Building B Address [address] [place] [address] Care Team Providers Care Meat Cutter Apprentice Name Role Phone Suzanna Gonzales MD Primary Care Provider Desmond Moser MD Unavailable [phone] Allergies No known active allergies Medications famotidine [...] (12/02/2022): Added automatically from request for surgery [id number] Primary osteoarthritis of knees, bilateral 12/24 Encounters Date Type Department Care Team Description 06/14/2025 10:45 AM CDT Office Visit [facility] Orthopedics and Sports Medicine [address] [place] [address] Desmond Moser MD Trochanteric bursitis, right [...] on file Legal Sex Female 6:06 PM RESEARCH AND DEVELOPMENT MANAGER Gender Identity Not on file Sexual Orientation Not on file Obstetrics History Last Filed Vital Signs Vital Sign Reading Time Taken Comments Blood Pressure 144/90 01/10/2024 11:15 AM RESEARCH AND DEVELOPMENT MANAGER Pulse 86 01/10/2024 11:15 AM RESEARCH AND DEVELOPMENT MANAGER Temperature 36.5 C (97.7 F) 12/15/2022 3:46 PM RESEARCH AND DEVELOPMENT MANAGER Respiratory Rate 18 12/15/2022 3:46 PM RESEARCH AND DEVELOPMENT MANAGER Oxygen Saturation 95% 12/15/2022 3:46 PM RESEARCH AND DEVELOPMENT MANAGER Inhaled Oxygen Concentration - - Weight 92.1 [...] 09/28 Well Visit 65+ 2020 Covid-19 Vaccine ( season) 2025 09/01/2021, 02/13/2021, 01/22/2021 Influenza Vaccine (#1) 2025 , 08/05/2020, 10/27/2018 DTaP/Tdap/Td Vaccine (2 - Td or Tdap) 07/01/202702/2017 Pneumococcal vaccine 65+ Completed 09/01/2021, 07/29 Medical Devices Implanted Type Area Aquatic Instructor Device Identifier Shelf Expiration Date Model / Serial / Lot [employer] Cement Bone Simplex Gentamicin High Viscosity 40 6195-1-001 - [id number] Implanted:Qty: 1 on 12/15/2022 by Desmond Moser MD at [facility] Right: Knee [employer] 06/27/2024 6195-1-001 / / [id number] [employer] Cement Bone Simplex Gentamicin High Viscosity 40 6195-1-001 - [id number] Implanted:Qty: 1 on 12/15/2022 by Desmond Moser MD at [facility] Right: Knee [employer] 06/27/2024 6195-1-001 / / [id number] [employer] Attune S+ Cement Fix Bearing Knee 5 Baseplate Tibial [id number] - [id number] Implanted:Qty: 1 on 12/15/2022 by Desmond Moser MD at [facility] Right: Knee [employer] 08/27/2032 [id number] / / [id number] [employer] Attune Cemented Posterior Stabilize Knee Right 6 Component [id number] - [id number] Implanted:Qty: 1 on 12/15/2022 by Desmond Moser MD at [facility] Right: Knee [employer] 08/27/2032 [id number] / / [id number] [employer] Attune 6mm Posterior Stabilize Fix Bearing Knee 6 Insert Tibial [id number] - [id number] Implanted:Qty: 1 on 12/15/2022 by Desmond Moser MD at [facility] Right: Knee [employer] 09/27/2027 [id number] / / [id number] Procedures Procedure Name Priority Date/Time Associated Diagnosis Comments DC ARTHROCENTESIS ASPIR&/INJ MAJOR JT/BURSA W/O US Routine 06/14/2025 10:45 AM CDT Trochanteric bursitis, right hip from Last 3 Months Results * DC ARTHROCENTESIS ASPIR&/INJ MAJOR JT/BURSA W/O US (06/14/2025 [...] Final Result from Last 3 Months Insurance [facility] [employer] [facility] [employer] Advance Directives For more information, please contact: [phone] Documents on File Type Date Recorded Patient Disease Case Manager Expl anation Power of Air Valve Mechanic 12/15/2022 6:08 AM * Full Code (Latest Code Status on File) Date Activated Date Inactivated Comments 12/15/2022 10:46 AM 12/15/2022 7:53 PM Care Teams Meat Cutter Apprentice Relationship Specialty Start Date End Date Suzanna Gonzales MD PCP - General Family Practice 12/24/21 Desmond Moser MD [address] [place] [address] [address] [place] [address] Surgeon Orthopedic Surgery 12/15/22
--- OUTSIDE RECORDS SUMMARY | 2025-09-03 10:38 | XMS_ITS | Clinical Summary ---
Author Organization [facility] Address [address] [place] [address] Care Team Providers Care Litigation Partner Name Role Phone Fredy Bowen MD Primary Care Provider [phone] Source Comments [facility],non-owned Affiliates and Associated Physician Practices is amultiple site organization consisting of ambulatory clinics and hospital sitesin [place], [place], [place] and [place]. This disclosure is being madepursuant to the Care Everywhere program and may not contain all information available regarding this patient. Last updated 18.[facility] Allergies No known active allergies Medications * [...] of 2) 2005 SCREENING FOR DIABETES 06/27/2019 DEPRESSION SCREENING 11/28/2024 MEDICARE AWV CALENDAR YEAR 2024 COVID-19 VACCINE (1 - 2023-2 5 season) 2025 INFLUENZA VACCINE (#1) 2025 Respiratory Syncytial Virus [...] patient's age to complete this topic [place] [address] [facility] A[employer] MEDICARE ADV SELF PAY NO INSURANCE Member Subscriber Plan / Payer (Ef fective for All Dates) Name:Tre Mccormick Sindy Member ID:Not on file Relation to Subscriber:Not on file Name:TRE MCCORMICK Subscriber ID:Not on file (Home) Address: [address] [place] [id number] Payer ID:Not on file Group ID:Not on file Type:Self Pay Address: [place], [place] Care Teams Litigation Partner Relationship Specialty Start Date End Date Fredy Bowen MD [address] [place] [address] PCP - General 11/16/19
--- OUTSIDE RECORDS SUMMARY | 2025-09-03 10:38 | XMS_ITS | Encounter Summary ---
Author Organization [facility] Address 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
[2025-09-03 13:04] LABS: Hematocrit 43.0 % (37.0-47.0); Hemoglobin 13.7 g/dL (12.0-15.0); Immature Granulocyte Percent A 0.2 % (0-0.5); Lymphocytes Absolute Auto 1.21 K/mm3 (0.9-3.2); Mean Corpuscular HGB Conc 31.9 g/dl (32-36); Mean Corpuscular Hemoglobin 29.9 pg (26-34); Mean Corpuscular Volume 93.9 fl (80-100); Nucleated Red Blood Cells Absolute Auto 0.000 K/mm3 (0.0-0.012); Nucleated Red Blood Cells Perc 0.0 % (0.0-0.2); Platelet Count Result 318 k/mm3 (150-375); Red Blood Count 4.58 M/mm3 (4.2-5.4); White Blood Count 4.4 K/mm3 (4.5-10.0)
[2025-09-03 13:25] LABS: Alanine Aminotransferase 18 U/L (6-35); Albumin Level 4.4 g/dL (3.5-5.1); Alkaline Phosphatase 72 U/L (38-126); Anion Gap 7 mmol/L (4-12); Aspartate Amino Transferase 36 U/L (14-36); Bilirubin,Total 0.7 mg/dL (0.2-1.3); Blood Urea Nitrogen 19 mg/dL (7-17); Calcium 9.4 mg/dL (8.4-10.2); Carbon Dioxide 28 mmol/L (22-30); Chloride 105 mmol/L (98-107); Cholesterol 156 mg/dL (0-200); Estimated Glomerular Filt Rate > 60; Glucose 91 mg/dL (65-110); HDL Direct 59 mg/dL; Potassium 4.6 mmol/L (3.4-5.0); Sodium 140 mmol/L (137-145); Total Protein 7.2 g/dL (6.3-8.2); Triglycerides 74 mg/dL (<150)
[2025-09-03 13:52] LABS: Thyroid Stimulating Hormone Reflex 1.300 uIU/mL (0.465-4.68)
[2025-09-03 14:20] LABS: Vitamin B12 960.0 pg/mL (239-931)
[2025-09-03 14:43] LABS: Hemoglobin A1C 5.5 % (<5.7)
== END 2025-09-03 09:54 | disposition home or self-care (01) ==
LOC: ANHGOSHLAB 09:54
PROVIDERS: PCP Family Medicine; Visit Provider Family Medicine
DX: E78.5 Hyperlipidemia, unspecified (principal); R73.9 Hyperglycemia, unspecified; Z00.00 Encounter for general adult medical examination without abnormal findings; Z79.899 Other long term (current) drug therapy; E53.8 Deficiency of other specified B group vitamins; E55.9 Vitamin D deficiency, unspecified
CPT/HCPCS: 36415; 80053; 80061; 82306; 82607; 83036; 84443; 85025

== ENCOUNTER 2025-10-17 09:40 | Outpatient (CLI) | payer MEDICARE, SELFPAY ==
--- NOTE | 2025-10-17 | ECG_ITS ---
Test Date: 2025-10-17 10:08:02 Measurements Intervals [place] Rate: 69 P: 53 MA: 166 QRS: 13 QRSD: 87 T: 42 QT: 377 QTc: 405 Interpretive Statements SINUS RHYTHM No previous ECG available for comparison Electronically Signed On 10-17-2025 10:19:17 CODING ASSISTANT by Pj Ornelas D.O
[2025-10-17 11:29] LABS: Alanine Aminotransferase 19 U/L (6-35); Albumin Level 4.2 g/dL (3.5-5.1); Alkaline Phosphatase 77 U/L (38-126); Anion Gap 7 mmol/L (4-12); Aspartate Amino Transferase 22 U/L (14-36); Bilirubin,Total 0.7 mg/dL (0.2-1.3); Blood Urea Nitrogen 23 mg/dL (7-17); Calcium 9.0 mg/dL (8.4-10.2); Carbon Dioxide 27 mmol/L (22-30); Chloride 104 mmol/L (98-107); Estimated Glomerular Filt Rate > 60; Glucose 82 mg/dL (65-110); Potassium 3.9 mmol/L (3.4-5.0); Sodium 138 mmol/L (137-145); Total Protein 7.0 g/dL (6.3-8.2)
== END 2025-10-17 09:41 | disposition home or self-care (01) ==
PROVIDERS: PCP Family Medicine; Visit Provider Podiatrist Foot & Ankle Surgery
DX: R03.0 Elevated blood-pressure reading, without diagnosis of hypertension (principal); Z01.818 Encounter for other preprocedural examination
CPT/HCPCS: 36415; 80053; 93005